=== PATIENT | female | born 1960 ===

== ENCOUNTER 2018-02-05 05:49 | Observation (INO) | payer MEDICAID ==
--- NOTE | 2018-02-05 06:46 | ED PDOC ---
HPI: Psych/Substance Abuse Time Seen by Provider: 02/05/18 06:00 Chief Complaint (Nursing): Psychiatric Evaluation Chief Complaint (Provider): Psychiatric Evaluation History Per: Patient History/Exam Limitations: no limitations Onset/Duration Of Symptoms: Hrs Current Symptoms Are (Timing): Still Present Modifying Factor(s): Cocaine Associated Symptoms: denies: Suicidal Thoughts, Suicidal Plan Additional Complaint(s): 57 year old female with PMHx of COPD, drug abuse, epilepsy and cocaine use was brought to the ER via EMS with roommate for psychiatric evaluation. Patient states she has not slept in 3 days and she has been hallucinating about her daughter who is not there. She has been found looking inside of cars outside. She admits to smoking cigarettes as well snorting cocaine last night. PMD: Genaro Duarte Past Medical History Reviewed: Historical Data, Nursing Documentation, Vital Signs Vital Signs: Last Vital Signs Temp 97.6 F 02/05/18 05:54 Pulse 121 H 02/05/18 05:54 Resp 20 02/05/18 05:54 BP 103/45 L 02/05/18 05:54 Pulse Ox 98 02/05/18 05:54 - Medical History PMH: Anxiety, Emphysema, Fractures, HTN, Seizures Denies: Chronic Kidney Disease - Surgical History Other surgeries: hip replacement, metal placed in foot - Family History Family History: States: Unknown Family Hx - Social History Current smoker - smoking cessation education provided: Yes Alcohol: Social Drugs: Cocaine - Allergies Allergies/Adverse Reactions: Allergies Allergy/AdvReac Type Severity Reaction Status Date / Time No Known Allergies Allergy Verified 02/05/18 06:04 Review of Systems ROS Statement: Except As Marked, All Systems Reviewed And Found Negative Constitutional: Negative for: Fever Cardiovascular: Negative for: Chest Pain Respiratory: Negative for: Shortness of Breath Gastrointestinal: Negative for: Nausea, Vomiting, Diarrhea Psych: Positive for: Other (hallucinations). Negative for: Suicidal ideation (homicidal ideation) Physical Exam - Reviewed Nursing Documentation Reviewed: Yes Vital Signs Reviewed: Yes - Physical Exam Appears: Positive for: Non-toxic Head Exam: Positive for: ATRAUMATIC, NORMAL INSPECTION, NORMOCEPHALIC Skin: Positive for: Normal Color, Warm, Dry. Negative for: Rash Eye Exam: Positive for: Normal appearance, EOMI, Other (GLASS EYE) ENT: Positive for: Normal ENT Inspection Neck: Positive for: Normal, Painless ROM, Supple. Negative for: Decreased ROM Cardiovascular/Chest: Positive for: Regular Rate, Rhythm. Negative for: Murmur Respiratory: Positive for: Normal Breath Sounds. Negative for: Decreased Breath Sounds, Wheezing, Respiratory Distress Gastrointestinal/Abdominal: Positive for: Normal Exam, Soft. Negative for: Tenderness, Guarding, Rebound Back: Positive for: Normal Inspection. Negative for: L CVA Tenderness, R CVA Tenderness Extremity: Positive for: Normal ROM. Negative for: Tenderness, Pedal Edema, Deformity Neurologic/Psych: Positive for: Alert, Oriented (x3). Negative for: Motor/Sensory Deficits - ECG O2 Sat by Pulse Oximetry: 98 (RA) Pulse Ox Interpretation: Normal Medical Decision Making Medical Decision Making: Time: 623 Initial Plan: HALLUCINATIONS RULE OUT ELECTROLYTE ABNORMALITY, PSYCHIATRIC EVALUATION EKG Acetaminophen Alcohol serum BMP Drug screen Salicylate CBC w/ Differential Urinalysis Reevaluation Time: 699 Patient will be signed out Dr. Warner pending MEDICAL WORKUP AND crisis evaluation. Scribe Attestation: Documented by Venu Ordoñez, acting as a scribe for Connor Heller MD Provider Scribe Attestation: All medical record entries made by the Scribe were at my direction and personally dictated by me. I have reviewed the chart and agree that the record accurately reflects my personal performance of the history, physical exam, medical decision making, and the department course for this patient. I have also personally directed, reviewed, and agree with the discharge instructions and disposition. Disposition - Clinical Impression Clinical Impression: Hallucinations - Patient ED Disposition Is Patient to be Admitted: Transfer of Care - Disposition Disposition: Transfer of Care Disposition Time: 07:00 Condition: STABLE Forms: [facility] (Turkish) Patient Signed Over To: Ariela Warner
[2018-02-05] MEDS ORDERED: Sodium Chloride 0.9% 1,000 ML IV STA (06:54)
[2018-02-05 07:13] LABS: BASO % 0.6 % (0.0-2.0); EOS % 0.3 % (0.0-4.0); HEMOGLOBIN 12.3 g/dL (12.0-16.0); LYMPH # 0.9 K/uL (1.0-4.3); MEAN CELL VOLUME 92.7 fl (81.0-99.0); MEAN CORPUSCULAR HEMOGLOBIN 30.8 pg (27.0-31.0); MEAN CORPUSCULAR HGB CONC 33.3 g/dL (33.0-37.0); MEAN PLATELET VOLUME 8.6 fl (7.2-11.7); MONO # 0.3 K/uL (0.0-0.8); MONO % 6.4 % (0.0-10.0); NEUT # 2.8 K/uL (1.8-7.0); NEUT % 69.7 % (50.0-75.0); RED CELL DISTRIBUTION WIDTH 13.9 % (11.5-14.5)
[2018-02-05 07:23] LABS: SQUAMOUS EPITHIAL 5 /hpf (0-5); URINE BACTERIA RARE (<OCC); URINE BILIRUBIN SMALL (NEGATIVE); URINE BLOOD NEGATIVE (NEGATIVE); URINE CLARITY CLOUDY (Clear); URINE COLOR AMBER (YELLOW); URINE GLUCOSE (UA) NEG (Normal); URINE LEUKOCYTE ESTERASE LARGE Leu/uL (Negative); URINE PROTEIN 100 mg/dL (NEGATIVE)
--- NOTE | 2018-02-05 07:23 | ED PDOC ---
- Laboratory Results Result Diagrams: 02/05/18 05:40 02/05/18 12:14 - ECG O2 Sat by Pulse Oximetry: 95 (RA) Medical Decision Making Medical Decision Making: Time: 7:00 Patient was endorsed to me by Dr. Heller pending labs and crisis evaluation. CT Head: FINDINGS: HEMORRHAGE: No intracranial hemorrhage. BRAIN: No mass effect or edema. No atrophy or chronic microvascular ischemic changes. VENTRICLES: Unremarkable. No hydrocephalus. CALVARIUM: Unremarkable. PARANASAL SINUSES: Unremarkable as visualized. No significant inflammatory changes. MASTOID AIR CELLS: Unremarkable as visualized. No inflammatory changes. OTHER FINDINGS: Calcification of the right globe. IMPRESSION: No intracranial hemorrhage. Impression Hallucinations, UTI, hypokalemia. Patient requires medical management and is not stable for psych eval. Scribe Attestation: Documented by Kathryn Lux, acting as a scribe for Ariela Warner MD. Provider Scribe Attestation: All medical record entries made by the Scribe were at my direction and personally dictated by me. I have reviewed the chart and agree that the record accurately reflects my personal performance of the history, physical exam, medical decision making, and the department course for this patient. I have also personally directed, reviewed, and agree with the discharge instructions and disposition. Disposition Discussed With : Genaro Duarte Counseled Patient/Family Regarding: Studies Performed, Diagnosis - Clinical Impression Clinical Impression: Hallucinations, UTI (urinary tract infection), Hypokalemia - POA Present On Arrival: None - Disposition Disposition: Hospitalized as Observation Patient Disposition Time: 09:00 Condition: FAIR
[2018-02-05 07:24] LABS: ACETAMINOPHEN < 10.0 ug/ml (10.0-30.0); SALICYLATE < 1.0 mg/dl
[2018-02-05 07:26] LABS: ALB/GLOB RATIO 1.4 (1.0-2.1); ALBUMIN 4.5 g/dL (3.5-5.0); ALT/SGPT 20 U/L (9-52); AST/SGOT 29 U/L (14-36); BILIRUBIN,DIRECT 0.3 mg/ml (0.0-0.4); BLOOD UREA NITROGEN 11 mg/dl (7-17); CALCIUM 9.7 mg/dL (8.4-10.2); GFR NON-AFRICAN AMERICAN > 60
[2018-02-05 07:35] LABS: BARBITURATES, UR NEGATIVE (NEGATIVE); BENZODIAZEPINES, UR NEGATIVE (NEGATIVE)
[2018-02-05] MEDS ORDERED: Potassium Chloride 20 mEq ER Tab PO ONE ×3 (07:37→12:09)
[2018-02-05 07:38] LABS: OPIATES, UR NEGATIVE (NEGATIVE); PHENCYCLIDINE, UR NEGATIVE (NEGATIVE)
[2018-02-05] MEDS: Potassium CL 10 MEQ/50 ML 50 ML IVPB SCH ×2 (08:58→10:12)
--- NOTE | 2018-02-05 10:35 | CT ---
Date of service: 02/05/2018 PROCEDURE: CT HEAD WITHOUT CONTRAST. HISTORY: confusion COMPARISON: None available. TECHNIQUE: Axial computed tomography images were obtained through the head/brain without intravenous contrast. Radiation dose: Total exam DLP = 1810.3 mGy-cm. This CT exam was performed using one or more of the following dose reduction techniques: Automated exposure control, adjustment of the mA and/or kV according to patient size, and/or use of iterative reconstruction technique. FINDINGS: HEMORRHAGE: No intracranial hemorrhage. BRAIN: No mass effect or edema. No atrophy or chronic microvascular ischemic changes. VENTRICLES: Unremarkable. No hydrocephalus. CALVARIUM: Unremarkable. PARANASAL SINUSES: Unremarkable as visualized. No significant inflammatory changes. MASTOID AIR CELLS: Unremarkable as visualized. No inflammatory changes. OTHER FINDINGS: Calcification of the right globe. IMPRESSION: No intracranial hemorrhage.
[2018-02-05] MEDS ORDERED: cefTRIAXone (Rocephin) 1 gm Inj ONE (11:25)
[2018-02-05] MEDS ORDERED: Oxycodone/Acetaminophen 5/325 mg Tab PO PRN (12:05)
[2018-02-05] MEDS ORDERED: Albuterol-Ipratrop 3 mg / 0.5 (3 ml) UD IH PRN (12:05)
[2018-02-05 13:07] LABS: ALB/GLOB RATIO 1.3 (1.0-2.1); ALBUMIN 4.3 g/dL (3.5-5.0); ALT/SGPT 15 U/L (9-52); AST/SGOT 26 U/L (14-36); BLOOD UREA NITROGEN 10 mg/dl (7-17); CALCIUM 9.5 mg/dL (8.4-10.2); GFR NON-AFRICAN AMERICAN > 60
--- NOTE | 2018-02-05 20:39 | CARD ---
APPROVED REPORT Date of service: 02/05/2018 EKG Measurement Heart [id number] <Conclusion> Normal sinus rhythm Nonspecific ST and T wave abnormality Abnormal ECG
[2018-02-06 06:35] LABS: BASO % 0.6 % (0.0-2.0); EOS % 0.5 % (0.0-4.0); HEMOGLOBIN 12.6 g/dL (12.0-16.0); LYMPH # 1.4 K/uL (1.0-4.3); MEAN CELL VOLUME 93.3 fl (81.0-99.0); MEAN CORPUSCULAR HEMOGLOBIN 30.8 pg (27.0-31.0); MEAN PLATELET VOLUME 8.6 fl (7.2-11.7); MONO # 0.3 K/uL (0.0-0.8); MONO % 8.8 % (0.0-10.0); NEUT # 1.6 K/uL (1.8-7.0); NEUT % 48.1 % (50.0-75.0); NRBC % 0.1 % (0.0-0.0); RBC 4.08 Mil/uL (3.80-5.20); RED CELL DISTRIBUTION WIDTH 14.4 % (11.5-14.5); WHITE BLOOD COUNT 3.4 K/uL (4.8-10.8)
[2018-02-06 06:55] LABS: ALB/GLOB RATIO 1.3 (1.0-2.1); ALBUMIN 4.1 g/dL (3.5-5.0); ALT/SGPT 19 U/L (9-52); AST/SGOT 25 U/L (14-36); BLOOD UREA NITROGEN 11 mg/dl (7-17); CALCIUM 9.7 mg/dL (8.4-10.2); GFR NON-AFRICAN AMERICAN > 60
--- NOTE | 2018-02-06 07:20 | CP.PCM.HP ---
History of Present Illness - History of Present Illness History of Present Illness: 57 y/o F with a PMHx of COPD, drug abuse, epilepsy and cocaine use admitted for UTI, hallucinations and hypokalemia. Pt was brought to ED by EMS. Pt stated seeing her daughter when this person is not present. Pt was unable to sleep for 3 days. Potassium level was found to be 2.7 in the ED. Pt received IV and PO supplementation of potassium. --Today, pt was seen and examined by bedside with Dr Barnhart. Pt reports feeling well, denies chest pain, SOB, abdominal pain, nausea, vomiting. Pt afebrile, tolerating PO with NO acute events overnight. PMD: Genaro Duarte NKDA PMHx: COPD, drug abuse, epilepsy, anxiety and cocaine use PSHx: Hip replacement SHx: Pt smokes and uses cocaine. Present on Admission - Present on Admission Any Indicators Present on Admission: No Review of Systems - Constitutional Constitutional: absent: Chills, Fever - EENT Eyes: absent: Change in Vision Nose/Mouth/Throat: absent: Nasal Congestion, Nasal Discharge, Neck Mass - Cardiovascular Cardiovascular: absent: Chest Pain, Claudication - Gastrointestinal Gastrointestinal: absent: Abdominal Pain, Nausea, Vomiting - Genitourinary Genitourinary: absent: Dysuria, Hematuria, Nocturia - Psychiatric Psychiatric: Abnormal Sleep Pattern, Hallucinations Past Patient History - Past Medical History & Family History Past Medical History?: Yes - Past Social History Smoking Status: Current Some Days Smoker - CARDIAC Hx Hypertension: Yes - PULMONARY Hx Emphysema: Yes - NEUROLOGICAL Hx Seizures: Yes - HEENT Hx HEENT Problems: No - RENAL Hx Chronic Kidney Disease: No - ENDOCRINE/METABOLIC Hx Endocrine Disorders: No - HEMATOLOGICAL/ONCOLOGICAL Hx Blood Disorders: No - INTEGUMENTARY Hx Dermatological Problems: No - MUSCULOSKELETAL/RHEUMATOLOGICAL Hx Falls: No Hx Fractures: Yes - GASTROINTESTINAL Hx Gastrointestinal Disorders: No - GENITOURINARY/GYNECOLOGICAL Hx Genitourinary Disorders: No - PSYCHIATRIC Hx Anxiety: Yes Hx Post Traumatic Stress Disorder: Yes Hx Substance Use: Yes - SURGICAL HISTORY Hx Orthopedic Surgery: Yes (right hip replacement) Other/Comment: Right hip replacement - ANESTHESIA Hx Anesthesia: Yes Hx Anesthesia Reactions: No Meds Allergies/Adverse Reactions: Allergies Allergy/AdvReac Type Severity Reaction Status Date / Time No Known Allergies Allergy Verified 02/05/18 06:04 Physical Exam - Constitutional Appears: No Acute Distress - Head Exam Head Exam: ATRAUMATIC, NORMAL INSPECTION - Eye Exam Eye Exam: EOMI, Normal appearance - ENT Exam ENT Exam: Mucous Membranes Moist - Neck Exam Neck exam: Positive for: Full Rom. Negative for: Lymphadenopathy, Meningismus - Respiratory Exam Respiratory Exam: Clear to Auscultation Bilateral, NORMAL BREATHING PATTERN - Cardiovascular Exam Cardiovascular Exam: +S1, +S2 - GI/Abdominal Exam GI & Abdominal Exam: Normal Bowel Sounds, Soft. absent: Distended, Guarding, Tenderness - Extremities Exam Extremities exam: Positive for: full ROM. Negative for: calf tenderness, tenderness - Neurological Exam Neurological exam: Alert, Oriented x3 Results - Vital Signs Recent Vital Signs: Last Vital Signs Temp 97.7 F 02/06/18 03:36 Pulse 88 02/06/18 03:36 Resp 18 02/06/18 03:36 BP 103/71 02/06/18 03:36 Pulse Ox 96 02/06/18 03:36 - Labs Result Diagrams: 02/06/18 05:55 02/06/18 05:55 Labs: Laboratory Results - last 24 hr 02/05/18 02/05/18 02/05/18 05:40 05:40 05:40 WBC 4.0 L RBC 4.00 Hgb 12.3 Hct 37.1 MCV 92.7 MCH 30.8 MCHC 33.3 RDW 13.9 Plt Count 251 MPV 8.6 Neut % (Auto) 69.7 Lymph % (Auto) 23.0 [place] % (Auto) 6.4 Eos % (Auto) 0.3 Baso % (Auto) 0.6 Neut # (Auto) 2.8 Lymph # (Auto) 0.9 L [place] # (Auto) 0.3 Eos # (Auto) 0.0 Baso # (Auto) 0.0 Sodium 140 Potassium 2.7 L Chloride 107 Carbon Dioxide 22 Anion Gap 14 BUN 11 Creatinine 0.7 Est GFR ( Amer) > 60 Est GFR (Non-Af Amer) > 60 Random Glucose 111 H Calcium 9.7 Magnesium 2.0 Total Bilirubin 0.7 Direct Bilirubin 0.3 AST 29 ALT 20 Alkaline Phosphatase 92 Total Protein 7.8 Albumin 4.5 Globulin 3.3 Albumin/Globulin Ratio 1.4 Urine Color Urine Clarity Urine pH Ur Specific [place] Urine Protein Urine Glucose (UA) Urine Ketones Urine Blood Urine Nitrate Urine Bilirubin Urine Urobilinogen Ur Leukocyte Esterase Urine RBC (Auto) Urine Microscopic WBC Ur Squamous Epith Cells Urine Bacteria Hyaline Casts Salicylates < 1.0 Urine Opiates Screen Urine Methadone Screen Acetaminophen < 10.0 L Ur Barbiturates Screen Ur Phencyclidine Scrn Ur Amphetamines Screen U Benzodiazepines Scrn U Oth Cocaine Metabols U Cannabinoids Screen Alcohol, Quantitative < 10 02/05/18 02/05/18 02/05/18 06:55 06:55 12:14 WBC RBC Hgb Hct MCV MCH MCHC RDW Plt Count MPV Neut % (Auto) Lymph % (Auto) [place] % (Auto) Eos % (Auto) Baso % (Auto) Neut # (Auto) Lymph # (Auto) [place] # (Auto) Eos # (Auto) Baso # (Auto) Sodium 140 Potassium 3.7 Chloride 108 H Carbon Dioxide 24 Anion Gap 12 BUN 10 Creatinine 0.6 L Est GFR ( Amer) > 60 Est GFR (Non-Af Amer) > 60 Random Glucose 120 H Calcium 9.5 Magnesium Total Bilirubin 0.7 Direct Bilirubin AST 26 ALT 15 Alkaline Phosphatase 84 Total Protein 7.6 Albumin 4.3 Globulin 3.3 Albumin/Globulin Ratio 1.3 Urine Color Amanda Urine Clarity Cloudy Urine pH 5.0 Ur Specific [place] 1.031 H Urine Protein 100 Urine Glucose (UA) Neg Urine Ketones 20 Urine Blood Negative Urine Nitrate Negative Urine Bilirubin Small Urine Urobilinogen 2.0 H Ur Leukocyte Esterase Large Urine RBC (Auto) 18 H Urine Microscopic WBC 10 H Ur Squamous Epith Cells 5 Urine Bacteria Rare Hyaline Casts 6-10 H Salicylates Urine Opiates Screen Negative Urine Methadone Screen Negative Acetaminophen Ur Barbiturates Screen Negative Ur Phencyclidine Scrn Negative Ur Amphetamines Screen Negative U Benzodiazepines Scrn Negative U Oth Cocaine Metabols Positive H U Cannabinoids Screen Positive H Alcohol, Quantitative 02/06/18 02/06/18 05:55 05:55 WBC 3.4 L RBC 4.08 Hgb 12.6 Hct 38.1 MCV 93.3 MCH 30.8 MCHC 33.0 RDW 14.4 Plt Count 243 MPV 8.6 Neut % (Auto) 48.1 L Lymph % (Auto) 42.0 H [place] % (Auto) 8.8 Eos % (Auto) 0.5 Baso % (Auto) 0.6 Neut # (Auto) 1.6 L Lymph # (Auto) 1.4 [place] # (Auto) 0.3 Eos # (Auto) 0.0 Baso # (Auto) 0.0 Sodium 143 Potassium 3.6 Chloride 106 Carbon Dioxide 28 Anion Gap 13 BUN 11 Creatinine 0.7 Est GFR ( Amer) > 60 Est GFR (Non-Af Amer) > 60 Random Glucose 106 H Calcium 9.7 Magnesium Total Bilirubin 0.4 Direct Bilirubin AST 25 ALT 19 Alkaline Phosphatase 70 Total Protein 7.2 Albumin 4.1 Globulin 3.1 Albumin/Globulin Ratio 1.3 Urine Color Urine Clarity Urine pH Ur Specific [place] Urine Protein Urine Glucose (UA) Urine Ketones Urine Blood Urine Nitrate Urine Bilirubin Urine Urobilinogen Ur Leukocyte Esterase Urine RBC (Auto) Urine Microscopic WBC Ur Squamous Epith Cells Urine Bacteria Hyaline Casts Salicylates Urine Opiates Screen Urine Methadone Screen Acetaminophen Ur Barbiturates Screen Ur Phencyclidine Scrn Ur Amphetamines Screen U Benzodiazepines Scrn U Oth Cocaine Metabols U Cannabinoids Screen Alcohol, Quantitative Assessment & Plan - Assessment and Plan (Free Text) Assessment: 57 y/o F with a PMHx of COPD, drug abuse, epilepsy and cocaine use admitted for UTI, hallucinations and hypokalemia. PLAN: --Afebrile, stable, serum potassium WNL --Psychiatry consult, Dr Holder --On Ceftriaxone IV daily --Urine Culture growing Gram positive cocci. --Home meds resumed --Continue management as ordered. Case discussed with Dr Barnhart who agrees with the above BRUNA [place] PGY-2 - Date & Time Date: 02/06/18 Time: 08:45
[2018-02-06] MEDS ORDERED: Pneumococcal 23-Valent Vaccine IM ONE (09:00)
[2018-02-06] MEDS ORDERED: LEVOMILNACIPRAN HCL 40 MG PO SCH (09:00)
[2018-02-06] MEDS ORDERED: BISOPROLOL PO SCH (09:00)
[2018-02-06] MEDS ORDERED: HCTZ PO SCH (09:00)
[2018-02-06] MEDS ORDERED: Cholecalciferol 1,000 INTLU TAB PO SCH (09:00)
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
[2018-02-06 16:49] VITALS: BP 104/71; PULSE 93; RESP 18; TEMP 98.3; O2SAT 93
--- NOTE | 2018-02-11 09:13 | CON ---
DATE: 02/06/2018 Neurology consult called by Dr. Genaro Duarte. HISTORY OF PRESENT ILLNESS: This is a 57-year-old woman with a past medical history of drug abuse, cocaine use, epilepsy, COPD, who was admitted to the emergency room in [facility] last night for UTI accompanied with hypokalemia and in. When the daughter was there, she did not feel that she was. She also has had insomnia for three days. Potassium level was 2.7, . There were no auditory hallucinations, there were no visual hallucination. The patient has hallucination of ideas. Psychiatry consult was called. CAT scan of the head was done which was normal. The patient is now on the 6th Wise and on examination today, she participates in exam but she does have some paranoid ideation. PAST MEDICAL HISTORY: COPD, drug abuse, epilepsy, anxiety, cocaine use. PAST SURGICAL HISTORY: Hip placement. SOCIAL HISTORY: The patient does not use cocaine daily, she said the last recorded use was three day ago. REVIEW OF SYSTEMS: Positive for malaise, headache and generalized weakness, . PHYSICAL EXAMINATION: NEUROLOGIC: The patient is alert and oriented x3. PERRL. Cranial nerves II through XII are normal. Visual jean are full. She can name and repeat. Motor 5/5. Sensory intact to fine touch, pin. Gait is normal. Speech is slow and there is no dysarthria. Reflexes are +2 upper and lower bilaterally. LABORATORY DATA: As follows: White count 3.4, hemoglobin 12.6, platelet 243. Sodium 143, potassium 3.6, BUN 11, creatinine 0.7, glucose 107. Liver functions are normal. Urine shows no infection, 18 rbc's, 6-10 hyaline casts. Toxicology shows positive for cocaine and cannabinoids on 02/05/2018. IMPRESSION: This is a 57-year-old woman who is having hallucination secondary to cocaine use, although she has a history of epilepsy at this time, I do not feel that this secondary to a seizure disorder. . Thank you for this interesting consult. Syeda Garcia MD [facility] # [id number]
== END 2018-02-06 17:00 | disposition left against medical advice (07) ==
LOC: H.ER 05:49 → H.ERHOLD 09:37 → H.MEDSURG1 02-06 03:12
PROVIDERS: ADMIT Internal Medicine; ATTEND Internal Medicine
DX: F14.151 Cocaine abuse with cocaine-induced psychotic disorder with hallucinations (principal); F12.10 Cannabis abuse, uncomplicated; F43.21 Adjustment disorder with depressed mood; F43.10 Post-traumatic stress disorder, unspecified; E87.6 Hypokalemia; F17.210 Nicotine dependence, cigarettes, uncomplicated; G40.909 Epilepsy, unspecified, not intractable, without status epilepticus; J43.9 Emphysema, unspecified; N39.0 Urinary tract infection, site not specified; Z96.641 Presence of right artificial hip joint; I10 Essential (primary) hypertension; Z23 Encounter for immunization; Z91.14 Patient's other noncompliance with medication regimen
CPT/HCPCS: 36415; 70450; 80053; 80320; 80324; 80329; 80345; 80346; 80349; 80353; 80358; 80361; 81003; 83735; 83992; 85025; 87040; 87086; 87181; 90471; 90732; 93005; 96361; 96365; 96366; 99285; G0378; J0696; J3480